=== PATIENT | female | born 1985 | race Caucasian/White ===

== ENCOUNTER 2018-04-20 17:34 | Outpatient (CLI) | payer OTHER | END 2018-04-20 20:43 | disposition home or self-care (01) | LOC: SLB 17:34 | PROVIDERS: ATTEND Specialist | DX: N91.2 Amenorrhea, unspecified (principal) | CPT/HCPCS: 36415; 84144; 84702-TC ==

== ENCOUNTER 2018-04-22 17:20 | Outpatient (CLI) | payer OTHER | END 2018-04-22 20:27 | disposition home or self-care (01) | LOC: SLB 17:20 | PROVIDERS: ATTEND Specialist | DX: N91.2 Amenorrhea, unspecified (principal) | CPT/HCPCS: 36415; 84144; 84702-TC ==

== ENCOUNTER 2018-04-29 16:10 | Outpatient (CLI) | payer OTHER | END 2018-04-29 19:28 | disposition home or self-care (01) | LOC: SLB 16:10 | PROVIDERS: ATTEND Specialist | DX: N91.2 Amenorrhea, unspecified (principal) | CPT/HCPCS: 36415; 84702-TC ==

== ENCOUNTER 2018-06-06 09:34 | Outpatient (CLI) | payer OTHER ==
[2018-06-08 00:11] LABS: HEMOGLOBIN A1C 5.4 % (4.8-5.6)
[2018-06-08 08:09] LABS: FOLLICLE STIMULATION HORMONE 4.3 mIU/mL (.); LUETENIZING HORMONE 6.8 mIU/mL (.)
[2018-06-08 12:07] LABS: INSULIN 14.7 uIU/mL (2.6-24.9)
[2018-06-08 20:13] LABS: PTT-LA 33.9 sec (0.0-51.9)
[2018-06-13 13:42] LABS: ANTI-THYROGLOBULIN AB <1.0
== END 2018-06-06 23:19 | disposition home or self-care (01) ==
LOC: SLB 09:34
PROVIDERS: ATTEND Specialist
DX: N92.6 Irregular menstruation, unspecified (principal); N96 Recurrent pregnancy loss; Q51.3 Bicornate uterus
CPT/HCPCS: 36415; 81291; 81403; 81407; 81479; 83001; 83002; 83036; 83525; 84443-TC; 85613; 85670; 85705; 85732; 86147; 86800

== ENCOUNTER 2018-06-10 13:09 | Outpatient (CLI) | payer OTHER ==
[2018-06-10] MEDS ORDERED: IOHEXOL 50 ML IV ONE (13:26)
== END 2018-06-10 18:17 | disposition home or self-care (01) ==
LOC: SRD 13:09
PROVIDERS: ATTEND Family Medicine
DX: N96 Recurrent pregnancy loss (principal); Q51.3 Bicornate uterus
CPT/HCPCS: 74740; C1751; Q9967

== ENCOUNTER 2019-06-26 15:47 | Observation (INO) | payer OTHER ==
[~2019-06-26] VITALS: Ht 165.1 cm; Wt 113.4 kg
== END 2019-06-26 16:30 | disposition home or self-care (01) ==
LOC: SPU 15:47 → UNDOADMIN 15:47 → SPU 15:47 → UNDODISIN 16:30 → EDSTATUS 06-27 10:37
PROVIDERS: ADMIT Specialist; ATTEND Specialist
DX: O14.93 Unspecified pre-eclampsia, third trimester (principal); Z3A.36 36 weeks gestation of pregnancy
CPT/HCPCS: G0378

== ENCOUNTER 2019-07-03 16:17 | Observation (INO) | payer OTHER ==
[~2019-07-03] VITALS: Ht 165.1 cm; Wt 113.4 kg
== END 2019-07-03 17:15 | disposition home or self-care (01) ==
LOC: SPU 16:17
PROVIDERS: ADMIT Specialist; ATTEND Specialist
DX: Z34.93 Encounter for supervision of normal pregnancy, unspecified, third trimester (principal); Z3A.36 36 weeks gestation of pregnancy
CPT/HCPCS: 59025; G0378

== ENCOUNTER 2019-07-06 10:38 | Inpatient (IN) | payer OTHER ==
[~2019-07-06] VITALS: Ht 165.1 cm; Wt 112.9 kg
[2019-07-06 12:14] VITALS: BP_SYST 149
[2019-07-06] MEDS: hydrALAZINE HCL 10 MG TABLET PO SCH (20:53)
[2019-07-06] MEDS: TEMAZEPAM 15 MG CAPSULE PO PRN (22:51)
[2019-07-06] MEDS: HYDROcodone/ACETAMIN 5-325 MG TAB (NORCO/ VICODIN) PO PRN (22:51)
[2019-07-07] MEDS: hydrALAZINE HCL 10 MG TABLET PO SCH ×2 (09:12→21:15)
[2019-07-07] MEDS ORDERED: CALCIUM CARBONATE 500 MG/ TAB.CHEW PO PRN (10:15)
--- NOTE | 2019-07-07 15:02 | NUR ---
Dietitian Recommendations * Recommend continuing regular diet LP, RD Please refer to Nutrition Assessment for details. Addendum: 07/07/19 at [address] Amended: Links added.
[2019-07-07] MEDS: HYDROcodone/ACETAMIN 5-325 MG TAB (NORCO/ VICODIN) PO PRN (18:55)
[2019-07-07] MEDS: TEMAZEPAM 15 MG CAPSULE PO PRN (21:15)
[2019-07-07] MEDS ORDERED: hydrALAZINE HCL 10 MG TABLET ONE (21:27)
[2019-07-08] MEDS: HYDROcodone/ACETAMIN 5-325 MG TAB (NORCO/ VICODIN) PO PRN ×2 (06:31→12:27)
[2019-07-08] MEDS: hydrALAZINE HCL 10 MG TABLET PO SCH ×2 (09:55→21:00)
[2019-07-08] MEDS ORDERED: OXYTOCIN/0.9 % SODIUM CHLORIDE 1,000 ML IV SCH (10:55)
[2019-07-08] MEDS ORDERED: DINOPROSTONE 10 MG SUPP VG ONE (11:00)
[2019-07-08] MEDS ORDERED: NALBUPHINE HCL 10 MG/ML AMP IVP PRN (11:00)
[2019-07-08 13:25] LABS: BASOPHILS % (AUTO) 0.3 % (0.0-2.0); EOSINOPHILS % (AUTO) 0.4 % (0.0-4.0); HEMATOCRIT 35.9 % (36-48); HEMOGLOBIN 12.1 g/dL (12.0-16.0); LYMPHOCYTES % (AUTO) 16.7 % (20.5-51.5); MEAN CORPUSCULAR HEMOGLOBIN 29 pg (27-31); MEAN CORPUSCULAR HGB CONC 34 % (32-36); MEAN CORPUSCULAR VOLUME 85 fL (79.0-98.0); MONOCYTES # (AUTO) 0.6 K/uL (0.0-1.0); NEUTROPHILS # (AUTO) 9.5 K/uL (1.8-7.7); NEUTROPHILS % (AUTO) 77.6 % (40.0-70.0); PLATELET COUNT (AUTO) 170 K/uL (130-430); RED BLOOD CELL COUNT(AUTO) 4.23 MIL/uL (4.2-6.2); RED CELL DISTRIBUTION WIDTH 13.6 % (9.0-15.0); WHITE BLOOD COUNT (AUTO) 12.2 K/uL (4.8-10.8)
[2019-07-08] MEDS: LR 1,000 ML IV SCH ×2 (21:12→22:30)
[2019-07-08] MEDS ORDERED: fentaNYL CITRATE/PF 100 MCG/2 ML AMP ONE (21:34)
[2019-07-08] MEDS ORDERED: ROPIVACAINE HCL/PF 0.2% 200 ML ONE (21:34)
[2019-07-08] MEDS ORDERED: LR 500 ML IV ONE (21:37)
[2019-07-08] MEDS ORDERED: FENT2mCg/mL-ROPIVA0.2%/NS EPID 200 ML EP SCH (21:45)
[2019-07-08] MEDS ORDERED: AMPICILLIN SODIUM 2 GM VIAL ONE (22:29)
[2019-07-08] MEDS ORDERED: AMPICILLIN SODIUM 2 GM in NS 100 ML IV SCH (23:15)
[2019-07-09] MEDS ORDERED: AMPICILLIN SODIUM 1 GM VIAL ONE (01:53)
[2019-07-09] MEDS ORDERED: AMPICILLIN SODIUM 1 GM in NS 50 ML IV SCH (02:00)
[2019-07-09] MEDS ORDERED: CEFAZOLIN 2 GM IVPB PREMIX 50 ML IV ONE (02:15)
[2019-07-09] MEDS ORDERED: MORPHINE SULFATE 10MG/10ML PF AMP EP SCH (03:30)
[2019-07-09] MEDS ORDERED: KETOROLAC TROMETHAMINE 60 MG/2 ML VIAL IM PRN (03:30)
[2019-07-09] MEDS ORDERED: DIPHENHYDRAMINE INJ 50 MG/ML VIAL IVP PRN (03:30)
[2019-07-09] MEDS ORDERED: ONDANSETRON HCL 4 MG/2 ML VIAL IVP PRN (03:30)
[2019-07-09] MEDS ORDERED: NALBUPHINE HCL 10 MG/ML AMP IVP PRN (03:30)
[2019-07-09] MEDS ORDERED: fentaNYL CITRATE/PF 100 MCG/2 ML AMP IVP PRN ×2 (03:30)
[2019-07-09] MEDS ORDERED: NALOXONE HCL 0.4 MG/ML AMP (NARCAN) IVP PRN ×2 (03:30)
[2019-07-09 04:06] VITALS: BP_SYST 122
[2019-07-09] MEDS ORDERED: LR 1,000 ML IV SCH (04:09)
[2019-07-09] MEDS ORDERED: OXYTOCIN/0.9 % SODIUM CHLORIDE 1,000 ML IV ONE ×2 (04:09→04:24)
[2019-07-09] MEDS ORDERED: ONDANSETRON HCL 4 MG/2 ML VIAL ONE (04:10)
[2019-07-09] MEDS ORDERED: LR 1,000 ML IV.SOLN IV ONE (04:10)
[2019-07-09] MEDS ORDERED: BUPIVACAINE /PF 0.75% 10 ML VIAL INJ ONE (04:10)
[2019-07-09] MEDS ORDERED: METOCLOPRAMIDE HCL 10 MG/2 ML VIAL ONE (04:10)
[2019-07-09] MEDS ORDERED: NS IRRIG SOLN 1000 ML IR ONE (04:10)
[2019-07-09] MEDS ORDERED: MORPHINE SULFATE 10MG/10ML PF AMP ONE (04:10)
[2019-07-09] MEDS ORDERED: SENNOSIDES/DOCUSATE SODIUM 1 TAB TABLET(SENOKOT-S) PO PRN (04:15)
[2019-07-09] MEDS ORDERED: RHO(D) IMMUNE GLOBULIN/MALTOSE 1500 UNITS/1.3 ML (WINHRO) IM PRN (04:15)
[2019-07-09] MEDS ORDERED: LANOLIN 7 GM OINT. TP PRN (04:15)
[2019-07-09] MEDS ORDERED: BISACODYL 10 MG/SUPPOSITORY RC PRN (04:15)
[2019-07-09] MEDS ORDERED: OXYCODONE/ACETAMINOPHEN 5-325 TABLET PO PRN (04:15)
[2019-07-09] MEDS ORDERED: MEASLES,MUMPS&RUBELLA VACC/PF 12500 UNIT/0.5 ML VIAL SUBQ PRN (04:15)
[2019-07-09] MEDS ORDERED: HYDROcodone/ACETAMIN 5-325 MG TAB (NORCO/ VICODIN) PO PRN (04:15)
[2019-07-09] MEDS ORDERED: CEFAZOLIN 1 GM IVPB PREMIX 50 ML IV SCH (06:00)
[2019-07-09] MEDS ORDERED: BUPIVACAINE /PF 0.5% 30 ML VIAL EP ONE (07:48)
[2019-07-09] MEDS ORDERED: KETOROLAC TROMETHAMINE 30 MG VIAL IVP SCH (12:00)
[2019-07-09] MEDS: CEFAZOLIN 1 GM IVPB PREMIX 50 ML IV SCH ×2 (13:46→23:38)
[2019-07-09] MEDS ORDERED: KETOROLAC TROMETHAMINE 30 MG VIAL IVP PRN (14:00)
[2019-07-09] MEDS: KETOROLAC TROMETHAMINE 30 MG VIAL IVP SCH (20:37)
[2019-07-09] MEDS ORDERED: TEMAZEPAM 15 MG CAPSULE PO PRN (21:00)
[2019-07-10] MEDS: KETOROLAC TROMETHAMINE 30 MG VIAL IVP SCH ×3 (02:25→12:53)
[2019-07-10 04:54] LABS: BASOPHILS % (AUTO) 0.2 % (0.0-2.0); EOSINOPHILS # (AUTO) 0.1 K/uL (0.0-0.4); EOSINOPHILS % (AUTO) 0.6 % (0.0-4.0); HEMATOCRIT 30.3 % (36-48); HEMOGLOBIN 10.2 g/dL (12.0-16.0); LYMPHOCYTES % (AUTO) 16.9 % (20.5-51.5); MEAN CORPUSCULAR HEMOGLOBIN 29 pg (27-31); MEAN CORPUSCULAR HGB CONC 34 % (32-36); MEAN CORPUSCULAR VOLUME 86 fL (79.0-98.0); MONOCYTES # (AUTO) 0.5 K/uL (0.0-1.0); MONOCYTES % (AUTO) 4.3 % (1.7-9.3); NEUTROPHILS # (AUTO) 9.3 K/uL (1.8-7.7); PLATELET COUNT (AUTO) 150 K/uL (130-430); RED BLOOD CELL COUNT(AUTO) 3.53 MIL/uL (4.2-6.2); RED CELL DISTRIBUTION WIDTH 13.8 % (9.0-15.0)
[2019-07-10] MEDS: CEFAZOLIN 1 GM IVPB PREMIX 50 ML IV SCH (06:31)
[2019-07-10] MEDS: SIMETHICONE 80 MG TAB.CHEW PO PRN (12:54)
[2019-07-10] MEDS: OXYCODONE/ACETAMINOPHEN 5-325 TABLET PO PRN ×2 (12:54→20:43)
[2019-07-10] MEDS: IBUPROFEN 600 MG TABLET PO SCH (18:00)
[2019-07-11] MEDS: IBUPROFEN 600 MG TABLET PO SCH ×3 (00:19→11:56)
[2019-07-11] MEDS: SIMETHICONE 80 MG TAB.CHEW PO PRN ×2 (00:19→11:56)
[2019-07-11] MEDS: DOCUSATE SODIUM 100 MG CAPSULE PO PRN ×2 (00:19→08:13)
[2019-07-11] MEDS: OXYCODONE/ACETAMINOPHEN 5-325 TABLET PO PRN ×5 (03:43→21:46)
[2019-07-12] MEDS: IBUPROFEN 600 MG TABLET PO SCH ×4 (00:07→18:03)
[2019-07-12] MEDS: DOCUSATE SODIUM 100 MG CAPSULE PO PRN ×3 (00:07→20:53)
[2019-07-12] MEDS: SIMETHICONE 80 MG TAB.CHEW PO PRN ×4 (00:07→20:53)
[2019-07-12] MEDS: OXYCODONE/ACETAMINOPHEN 5-325 TABLET PO PRN ×4 (05:37→20:53)
[2019-07-13] MEDS: IBUPROFEN 600 MG TABLET PO SCH ×3 (00:44→12:02)
[2019-07-13] MEDS: HYDROcodone/ACETAMIN 5-325 MG TAB (NORCO/ VICODIN) PO PRN (04:05)
[2019-07-13] MEDS: SIMETHICONE 80 MG TAB.CHEW PO PRN ×2 (04:06→06:24)
[2019-07-13] MEDS: OXYCODONE/ACETAMINOPHEN 5-325 TABLET PO PRN ×2 (09:47→14:18)
[2019-07-13] MEDS ORDERED: DIPH-TET-PERTUS Vaccine 0.5 ML VIAL (ADACEL) I.M. PRN (13:00)
[2019-07-13] MEDS ORDERED: FLU VACC QS2019-20 36MOS UP/PF 60 MCG/0.5 ML SYRINGE I.M. PRN (15:45)
== END 2019-07-13 16:50 | disposition home or self-care (01) | DRG 786 ==
LOC: OBSVTOIN 10:38 → SPU 10:38
PROVIDERS: ADMIT Specialist; ATTEND Specialist
PROC: 10D00Z1 Extraction of Products of Conception, Low, Open Approach (ICD-10-PCS; principal; 2019-07-10)
DX: O36.5930 Maternal care for other known or suspected poor fetal growth, third trimester, not applicable or unspecified (principal); O99.42 Diseases of the circulatory system complicating childbirth; O41.03X0 Oligohydramnios, third trimester, not applicable or unspecified; I51.7 Cardiomegaly; O13.4 Gestational [pregnancy-induced] hypertension without significant proteinuria, complicating childbirth; O99.214 Obesity complicating childbirth; O76 Abnormality in fetal heart rate and rhythm complicating labor and delivery; O99.824 Streptococcus B carrier state complicating childbirth; O69.81X0 Labor and delivery complicated by cord around neck, without compression, not applicable or unspecified; Z3A.36 36 weeks gestation of pregnancy; Z37.0 Single live birth
CPT/HCPCS: 36415; 81002-TC; 85025; 86592; 86886; 86900; 86901; 88307; 90715; 94760; A4618; J0290; J0690; J1885; J2274; J2405; J2590; J2765; J3010; J3490; J7120; Q2037

== ENCOUNTER 2021-05-08 18:59 | Emergency (ER) | payer BC, OTHER ==
[~2021-05-08] VITALS: Ht 165.1 cm; Wt 90.7 kg
[2021-05-08 19:00] VITALS: BP_SYST 122
[2021-05-08 19:45] LABS: BASOPHILS % (AUTO) 0.3 % (0.0-2.0); EOSINOPHILS # (AUTO) 0.1 K/uL (0.0-0.4); EOSINOPHILS % (AUTO) 0.7 % (0.0-4.0); HEMATOCRIT 36.8 % (36-48); HEMOGLOBIN 12.4 g/dL (12.0-16.0); LYMPHOCYTES # (AUTO) 2.9 K/uL (1.0-5.5); LYMPHOCYTES % (AUTO) 29.3 % (20.5-51.5); MEAN CORPUSCULAR HEMOGLOBIN 28 pg (27-31); MEAN CORPUSCULAR HGB CONC 34 % (32-36); MEAN CORPUSCULAR VOLUME 84 fL (79.0-98.0); MONOCYTES # (AUTO) 0.6 K/uL (0.0-1.0); MONOCYTES % (AUTO) 5.8 % (1.7-9.3); NEUTROPHILS # (AUTO) 6.3 K/uL (1.8-7.7); NEUTROPHILS % (AUTO) 63.9 % (40.0-70.0); PLATELET COUNT (AUTO) 232 K/uL (130-430); RED BLOOD CELL COUNT(AUTO) 4.37 MIL/uL (4.2-6.2); RED CELL DISTRIBUTION WIDTH 13.9 % (9.0-15.0); WHITE BLOOD COUNT (AUTO) 9.9 K/uL (4.8-10.8)
[2021-05-08 19:58] LABS: CALCIUM 8.9 mg/dL (8.4-11.0); CREATININE 0.67 mg/dL (0.55-1.30); POTASSIUM 3.6 mmol/L (3.5-5.1)
[2021-05-08 20:25] LABS: ALBUMIN 3.2 g/dL (3.4-4.8); TOTAL BILIRUBIN 0.3 mg/dL (0.0-1.0)
[2021-05-08 20:30] LABS: BILIRUBIN,URINE 1+ (NEGATIVE); BLOOD, URINE 3+ (NEGATIVE); CLARITY/URINE CLOUDY (CLEAR); COLOR,URINE RED (YELLOW); GLUCOSE,URINE NEGATIVE (NEGATIVE); KETONES,URINE 2+ (NEGATIVE); LEUKOCYTE ESTERASE ,URINE NEGATIVE (NEGATIVE); NITRITE, URINE NEGATIVE (NEGATIVE); PROTEIN URINE 3+ (NEGATIVE)
[2021-05-08 20:34] LABS: BACTERIA,URINE FEW /HPF (None Seen); MUCUS,URINE None Seen /LPF (None Seen); RBC,URINE >100 /HPF (0-3); WBC,URINE 0-3 /HPF (0-3)
[2021-05-08 21:02] VITALS: BP_SYST 118
== END 2021-05-08 21:02 | disposition home or self-care (01) ==
LOC: SED 18:59
DX: O20.0 Threatened abortion (principal); Z3A.10 10 weeks gestation of pregnancy
CPT/HCPCS: 36415; 76801; 80053; 81000; 84702; 85025; 86901; 99284